=== PATIENT | male | born 1975 | race Caucasian/White ===

== ENCOUNTER 2016-09-24 16:38 | Inpatient (IN) | payer OTHER ==
[~2016-09-24] VITALS: Ht 175.3 cm; Wt 86.9 kg
--- NOTE | 2016-09-24 17:43 | PHYS DOC ---
Past Medical History Past Medical History: Other Additional Past Medical Histor: HEP C Past Surgical History: Other Additional Past Surgical Histo: RIGHT HAND Alcohol Use: None Drug Use: None Adult General Chief Complaint Chief Complaint: OTHER COMPLAINTS HPI HPI Patient is a 41 year old male who presents with numbness on the L side of his body. Patient reports since yesterday evening ~1900 he has been having numbness/ burning pain in his LUE, LLE, L flank. No clear inciting or mitigating factors. No prior similar episodes. He denies weakness, HANNON, changes in vision. He has not taken anything for pain prior to arrival. Review of Systems Review of Systems Constitutional: Denies fever or chills Eyes: Denies change in visual acuity or eye pain HENT: Denies nasal congestion or sore throat Respiratory: Denies cough or shortness of breath Cardiovascular: Denies chest pain GI: Denies abdominal pain, nausea, vomiting, bloody stools or diarrhea : Denies dysuria or hematuria Musculoskeletal: Denies back pain or joint pain Integument: Denies rash or skin lesions Neurologic: Numbness/paresthesia on L side of body. Denies headache, focal weakness Current Medications Current Medications Current Medications Medications (Trade) Dose Ordered Sig/Rupal Start Time Stop Time Status Last Admin Dose Admin Gabapentin (Neurontin) 300 mg 1X ONCE 09/24/16 17:45 09/24/16 17:46 DC 09/24/16 17:49 300 MG Allergies Allergies Allergies Coded Allergies Type Severity Reaction Last Updated Verified No Known Drug Allergies 09/24/16 No Physical Exam Physical Exam Constitutional: Well developed, well nourished, no acute distress, non-toxic appearance HENT: Normocephalic, atraumatic, bilateral external ears normal Eyes: PERRL, EOMI, conjunctiva normal, no discharge Neck: Normal range of motion, no stridor Cardiovascular: Heart rate normal, regular rhythm, no murmur Lungs & Thorax: Bilateral breath sounds clear to auscultation Abdomen: Bowel sounds normal, soft, non-distended, no TTP Skin: Warm, dry, no erythema, no rash Extremities: No obvious deformity, no edema Neurologic: Alert and oriented X 3, GCS 15, CN II-XII grossly intact, strength intact and symmetrical throughout except for mild weakness in L fence post cutter strength, sensation to light touch diminished in LUE/LLE, no dystaxia noted Current Patient Data Vital Signs Vital Signs Date Time Temp Pulse Resp B/P Pulse Ox O2 Delivery O2 Flow Rate FiO2 09/24/16 19:10 68 20 129/80 96 09/24/16 16:41 97.5 Room Air 97.5 Lab Values Laboratory Tests Test 09/24/16 17:45 09/24/16 18:40 White Blood Count 6.9x10^3/uL (4.0-11.0) Red Blood Count 4.88x10^6/uL (4.30-5.70) Hemoglobin 15.5g/dL (13.0-17.5) Hematocrit 46.0% (39.0-53.0) Mean Corpuscular Volume 94fL (79-100) Mean Corpuscular Hemoglobin 32pg (25-35) Mean Corpuscular Hemoglobin Concent 34g/dL (31-37) Red Cell Distribution Width 13.0% (11.5-14.5) Platelet Count 254x10^3/uL (140-400) Neutrophils (%) (Auto) 53% (31-73) Lymphocytes (%) (Auto) 31% (24-48) Monocytes (%) (Auto) 10% (0-9) H Eosinophils (%) (Auto) 5% (0-3) H Basophils (%) (Auto) 1% (0-3) Neutrophils # (Auto) 3.7x10^3uL (1.8-7.7) Lymphocytes # (Auto) 2.2x10^3/uL (1.0-4.8) Monocytes # (Auto) 0.7x10^3/uL (0.0-1.1) Eosinophils # (Auto) 0.3x10^3/uL (0.0-0.7) Basophils # (Auto) 0.1x10^3/uL (0.0-0.2) Sodium Level 143mmol/L (136-145) Potassium Level 3.9mmol/L (3.5-5.1) Chloride Level 106mmol/L (98-107) Carbon Dioxide Level 28mmol/L (21-32) Anion Gap 9 (6-14) Blood Urea Nitrogen 9mg/dL (8-26) Creatinine 1.0mg/dL (0.7-1.3) Estimated GFR (Cockcroft-Gault) 82.8 Glucose Level 90mg/dL (70-99) Calcium Level 8.9mg/dL (8.5-10.1) Magnesium Level 2.1mg/dL (1.8-2.4) Urine Opiates Screen Neg (NEG) Urine Methadone Screen Neg (NEG) Urine Barbiturates Neg (NEG) Urine Phencyclidine Screen Neg (NEG) Urine Amphetamine/Methamphetamine Pos (NEG) Urine Benzodiazepines Screen Neg (NEG) Urine Cocaine Screen Neg (NEG) Urine Cannabinoids Screen Neg (NEG) Urine Ethyl Alcohol Neg (NEG) Laboratory Tests 09/24/16 17:45 Laboratory Tests 09/24/16 17:45 EKG EKG EKG (my read): sinus rhythm, rate 61, normal axis, intervals wnl, no acute ST/T changes Radiology/Procedures Radiology/Procedures CXR (my read): No acute abnormality CT head: IMPRESSION No acute intracranial process. Please note that CT can be relatively insensitive to acute ischemic infarction for up to 24 hours after symptom onset. Course & Med Decision Making Course & Med Decision Making Pertinent Labs and Imaging studies reviewed. (See chart for details) Patient is 41-year-old male who presents with left-sided numbness. Also appears to have mild left fence post cutter weakness on my exam. Must consider stroke although I consider this unlikely. Will obtain CT head, chest x-ray, EKG, labs to evaluate. Gabapentin ordered for pain. Imaging and EKG results as above. Blood work unremarkable. Urine drug screen positive for amphetamines. Discussed results with patient. Discussed with Dr. Dhillon, will admit under his care for further evaluation and treatment. Dragon Disclaimer Dragon Disclaimer This electronic medical record was generated, in whole or in part, using a voice recognition dictation system. Departure Departure Impression: Primary Impression: Numbness of left lower extremity Additional Impression: Numbness and tingling in left upper extremity Disposition: 09 ADMITTED INPATIENT Admitting Physician: Damon Dhillon Condition: STABLE Referrals: NO PCP (PCP) Problem Qualifiers DEBBIE WEEKS MD Sep 24, 2016 17:42
[2016-09-24] MEDS ORDERED: GABAPENTIN 300 MG CAPSULE. PO ONE (17:45)
[2016-09-24 17:54] LABS: BASO # 0.1 x10^3/uL (0.0-0.2); BASO % 1 % (0-3); EOS % 5 % (0-3); HEMOGLOBIN 15.5 g/dL (13.0-17.5); LYMPH # 2.2 x10^3/uL (1.0-4.8); LYMPH % 31 % (24-48); MEAN CORPUSCULAR HEMOGLOBIN 32 pg (25-35); MEAN CORPUSCULAR HGB CONC 34 g/dL (31-37); MEAN CORPUSCULAR VOLUME 94 fL (79-100); MONO % 10 % (0-9); NEUT % 53 % (31-73); PLATELET COUNT 254 x10^3/uL (140-400); RED BLOOD COUNT 4.88 x10^6/uL (4.30-5.70); WHITE BLOOD COUNT 6.9 x10^3/uL (4.0-11.0)
[2016-09-24 18:07] LABS: CALCIUM 8.9 mg/dL (8.5-10.1); GFR 82.8; POTASSIUM 3.9 mmol/L (3.5-5.1)
[2016-09-24 18:08] LABS: MAGNESIUM 2.1 mg/dL (1.8-2.4)
--- NOTE | 2016-09-24 18:33 | RAD ---
PROCEDURE CT head without intravenous contrast. HISTORY Left-sided numbness since 1900 hours. TECHNIQUE Axial images are obtained of the head from the skull base through the vertex without IV contrast Exposure: One or more of the following individualized dose reduction techniques were utilized for this examination: 1. Automated exposure control. 2. Adjustment of the mA and/or kV according to patient size. 3. Use of iterative reconstruction technique. COMPARISON None. FINDINGS The ventricles are appropriate in size, shape, and location for the patient's age.No obvious intracranial mass, mass-effect, midline shift, hemorrhage or obvious acute infarction is identified.Basilar cisterns are patent. Bone windows demonstrate no acute calvarial abnormality.The visualized paranasal sinuses appear clear. IMPRESSION No acute intracranial process. Please note that CT can be relatively insensitive to acute ischemic infarction for up to 24 hours after symptom onset. Electronically signed by: Heladio Soto MD (Sep 24, 2016 18:31:19)
[2016-09-24 18:56] LABS: BARBITURATES NEG (NEG); BENZODIAZEPINES NEG (NEG); CANNABINOIDS NEG (NEG); COCAINE NEG (NEG); METHADONE NEG (NEG); OPIATES NEG (NEG); PHENCYCLIDINE NEG (NEG)
[2016-09-24 19:01] LABS: ETHANOL, URINE NEG (NEG)
[2016-09-24] MEDS ORDERED: HYDROCODONE/APAP 5/325MG TABLET. PO ONE (19:30)
[2016-09-24] MEDS ORDERED: ACETAMINOPHEN 325 MG TABLET. PO PRN (19:30)
[2016-09-24] MEDS: MORPHINE SULFATE 2 MG/ML DISP.SYRIN. IV PRN (22:08)
[2016-09-24 22:25] VITALS: BP 144/81
--- NOTE | 2016-09-24 22:53 | ACF ---
Admission Forms Criteria TELEMETRY CARE Telemetry Admission Guidelines (Place 'X' for any and all applicable criteria): Admission to telemetry [A] may be indicated for ANY ONE of the following(1)(2)(3 )(4)(5): [ ]I. Cardiac disease, including ANY ONE of the following (9)(10)(11)(12)(13 ): [ ]a) Postacute DE [ ]b) Low-risk patients with ST-segment elevation DE who have undergone successful percutaneous coronary intervention [ ]c) Unstable angina [ ]d) Suspected DE (until it is ruled out) [ ]e) Post cardiac surgery (first 48 to 72 hours unless complications occur) [ ]f) Acute arrhythmias (including significant tachycardia or bradycardia) [B] [ ]g) Firing of an implantable cardioverter defibrillator [C] [ ]h) Suspected pacemaker or implantable cardioverter defibrillator malfunction (10) [ ]i) New administration or adjustment of an antiarrhythmic drug [D ] [ ]j) Child admitted for acute congestive heart failure [ ]j) Long QT syndrome [ ]k) Advanced heart block (eg, second-degree Mobitz type II, third- degree heart block) [ ]l) Acute myocarditis or pericarditis [ ]m) Short-term (ambulatory or inpatient) monitoring after a cardiac procedure as indicated by ANY ONE of the following [E]: [ ]i) Electrophysiologic studies [ ]ii) Percutaneous coronary intervention with stent placement [ ]iii) Pacemaker placement with cardiac conduction defect [ ]iv) Implantable cardiac defibrillator placement [X]II. Drug overdose or poisoning with substance that causes arrhythmias or QT prolongation (eg, phenothiazines, sympathomimetic agents, cyclic antidepressants, digitalis, antiarrhythmic drugs)(15) [ ]III. Short-term (ambulatory or inpatient) monitoring after therapeutic or diagnostic procedure requiring conscious sedation or anesthesia (eg, endoscopy, elective cardioversion) [ ]IV. Acute cerebrovascular even[F](18) [ ]V. Massive blood transfusion (eg, at least 10 units of packed red blood cells in 24 hours) [ ]. Variceal bleeding after endoscopy, sclerotherapy, or IV vasopressin [ ]VII. Uncorrected electrolyte abnormalities associated with an increased risk of dangerous arrhythmia [G]; examples include [ ]a) Hyperkalemia with attributable ECG changes [ ]b) Potassium greater than 6.5 mmol/L (mEq/L) in a patient without history of chronic renal disease [ ]c) Prolonged QT attributed to hypokalemia, hypomagnesemia, or hypocalcemia [ ]VIII.Unexplained syncope or other neurologic event suspected of being due to arrhythmia due to a finding that increases risk; examples include(19)(20)(21): [ ]a) High-risk ECG findings (eg, bifascicular block, bradycardia, abnormal QT interval, ventricular pre- excitation) [ ]b) History of previous syncope due to arrhythmia [ ]c) Abnormal ventricular function (eg, reduced ejection fraction ) [ ]d) Exertional or supine syncope [ ]e) Concerning syncope characteristics (eg, sudden loss of consciousness without prodrome) [ ]f) Family history of sudden [ ]g) Use of arrhythmogenic medication [ ]h) Suspected cardiac ischemia [ ]i) Known channelopathy (eg, long QT syndrome, Brugada syndrome, or catecholaminergic paroxysmal ventricular tachycardia) [ ]j) Known structural heart disease (eg, hypertrophic cardiomyopathy , severe valvular disease) [ ]k) Palpitations preceding syncope The original [employer] content created by [employer] has been revised. The portions of the content which have been revised are identified through the use of italic text or in bold, and [email or web address] has neither reviewed nor approved the modified material. All other unmodified content is copyright [employer]. Please see references footnoted in the original [employer] edition 2016 Admission Criteria Met?: Yes LAISHA BOWEN Sep 24, 2016 22:53
[2016-09-24] MEDS ORDERED: INFLUENZA VAX SCREEN BY RX. MC ONE (23:15)
[2016-09-25] MEDS: MORPHINE SULFATE 2 MG/ML DISP.SYRIN. IV PRN ×4 (00:12→13:30)
--- NOTE | 2016-09-25 00:12 | HP ---
ADMIT DATE: 09/24/2016 CHIEF COMPLAINT: Numbness on the left side. HISTORY OF PRESENT ILLNESS: The patient is a pleasant 41-year-old white male who resides at [facility] for the past 15 years. Basically, he presented today with left-sided weakness and some numbness started at 7 this evening, rated as 7/10. Initial imaging studies are not confirming anything, but we were concerned he could be having a stroke or TIA. I discussed the case with the ER physician. We are going to admit the patient and consult Neurology. PAST MEDICAL HISTORY: Hepatitis C and multiple tattoos. ALLERGIES: None. FAMILY HISTORY: Coronary artery disease. SOCIAL HISTORY: He used to do drugs. He used to smoke, used to drink, but currently he does not. He has been in [facility] for 15 years. He states he gets out in 5 years. MEDICATIONS: Reviewed, please refer to the MRAD. REVIEW OF SYSTEMS: GENERAL: No history of weight change, weakness or fevers. SKIN: No bruising, hair changes or rashes. EYES: No blurred, double or loss of vision. NOSE AND THROAT: No history of nosebleeds, hoarseness or sore throat. HEART: No history of palpitations, chest pain or shortness of breath on exertion. LUNGS: Denies cough, hemoptysis, wheezing or shortness of breath. GASTROINTESTINAL: Denies changes in appetite, nausea, vomiting, diarrhea or constipation. GENITOURINARY: No history of frequency, urgency, hesitancy or nocturia. NEUROLOGIC: He complains of left-sided weakness, although it is improving. PSYCHIATRIC: No history of panic, anxiety or depression. ENDOCRINE: No history of heat or cold intolerance, polyuria or polydipsia. EXTREMITIES: Denies muscle weakness, joint pain, pain on walking or stiffness. PHYSICAL EXAMINATION: VITAL SIGNS: Temperature afebrile, pulse 63, respirations 18, blood pressure 144/81, O2 sat 100%. GENERAL: He is alert, cooperative. He is shackled. Two officers are present. HEART: Distant S1, S2. LUNGS: Clear. ABDOMEN: Soft, positive bowel sounds. EXTREMITIES: No edema. SKIN: He has nearly complete coverage of his skin with tattoos. ENDOCRINE: No thyromegaly. LYMPHATICS: No cervical nodes. HEMATOPOIETIC: No bruising. 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 LABORATORY DATA: CT of the head is negative. Hematology: Negative. Electrolytes normal. Drug screen positive for amphetamines. ASSESSMENT AND PLAN: TIA symptoms versus stroke with incidental finding of a positive drug screen for amphetamines in a middle-aged male who resides in a correctional facility. The patient has been admitted, will consult Dr. Chandler. PT, OT evaluate and treat, daily aspirin. Continue home medicines, although according to records ____ at the hospital, I am not sure why he is positive for amphetamines. Cardiac monitoring. Repeat his labs in the morning. SAÚL REGAN DO DR: STEFFANIE/nathalie JOB#: [id number] / [id number]
[2016-09-25 03:00] VITALS: BP 121/78
[2016-09-25] MEDS: ONDANSETRON PF 4 MG/2 ML VIAL. IV PRN ×2 (05:25→13:29)
[2016-09-25 06:43] LABS: CALCIUM 8.8 mg/dL (8.5-10.1); CREATININE 0.8 mg/dL (0.7-1.3); GFR 107.1; POTASSIUM 4.1 mmol/L (3.5-5.1)
--- NOTE | 2016-09-25 06:50 | EKG ---
[facility] [address] [place] [address] Test Date: 2016-09-24 Test Time: 18:00:58 Pat Name: ERNIE LIMON Department: Room: [facility] Gender: M Blow Down Operator: : 1975 Requested By: DEBBIE WEEKS Order Number: [id number] Reading MD: Ksenia Dickerson Measurements Intervals [place] Rate: 61 P: 32 PA: 166 QRS: 31 QRSD: 86 T: 12 QT: 434 QTc: 443 Interpretive Statements SINUS RHYTHM NO SPECIFIC ECG ABNORMALITIES RI6.01 No previous ECG available for comparison Electronically Signed On 09-26-2016 20:07:55 CDT by Ksenia Dickerson
[2016-09-25 06:51] LABS: BASO # 0.1 x10^3/uL (0.0-0.2); BASO % 1 % (0-3); EOS % 7 % (0-3); HEMATOCRIT 42.6 % (39.0-53.0); HEMOGLOBIN 14.1 g/dL (13.0-17.5); LYMPH % 45 % (24-48); MEAN CORPUSCULAR HEMOGLOBIN 31 pg (25-35); MEAN CORPUSCULAR HGB CONC 33 g/dL (31-37); MEAN CORPUSCULAR VOLUME 95 fL (79-100); MONO % 10 % (0-9); NEUT % 37 % (31-73); PLATELET COUNT 241 x10^3/uL (140-400); RED BLOOD COUNT 4.51 x10^6/uL (4.30-5.70); RED CELL DISTRIBUTION WIDTH 13.1 % (11.5-14.5); WHITE BLOOD COUNT 6.6 x10^3/uL (4.0-11.0)
[2016-09-25 07:00] VITALS: BP 108/69
--- NOTE | 2016-09-25 07:47 | RAD ---
Portable chest, 09/24/2016: History: Left-sided numbness The heart size and pulmonary vascularity are normal. A calcified granuloma is present in the right base. No acute infiltrates are seen. There is no evidence of pleural fluid. IMPRESSION: No acute cardiopulmonary abnormality is detected.
[2016-09-25] MEDS ORDERED: FLU VACC QUAD 2016-17 (36MOS+)/PF 0.5 ML SYRINGE. VAX IM ONE (09:00)
--- NOTE | 2016-09-25 10:05 | PDOC2 ---
NEUROLOGY CONSULT Date of Admission Date of Admission DATE: 09/25/16 TIME: 10:01 Reason for Consult Reason for Consult: Left-sided numbness Referring Physician Referring Physician: Dr. Dhillon Source Source: Chart review, Patient History of Present Illness History of Present Illness The patient is a 41-year-old right-handed male inmate at [facility] who tonight to go to notice the onset of severe numbness, pain, and burning on the entire left side of his body. There is no history of stroke, seizure, or head injury. He says the symptoms persist. Past Medical History Hepatobiliary: Hep A/B/C (C) Past Surgical History Past Surgical History: Other (hand) Family History Family History: Cancer Social History Social History Inmate Current Medications Current Medications Current Medications Gabapentin (Neurontin) 300 mg 1X ONCE PO Last administered on 09/24/16 17:49 ; Start 09/24/16 at 17:45; Stop 09/24/16 at 17:46; Status DC Ondansetron HCl (Zofran) 4 mg PRN Q8HRS PRN IV NAUSEA/VOMITING Last administered on 09/25/16 05:25; Start 09/24/16 at 19:30; Stop 09/25/16 at 19:29 Morphine Sulfate 2 mg PRN Q2HR PRN IV PAIN Last administered on 09/25/16 09:03 ; Start 09/24/16 at 19:30; Stop 09/25/16 at 19:29 Acetaminophen (Tylenol) 650 mg PRN Q4HRS PRN PO FEVER Last administered on 09/24 23:08; Start 09/24/16 at 19:30; Stop 09/25/16 at 19:29 Acetaminophen/ Hydrocodone Bitart (Lortab 5/325) 1 tab 1X ONCE PO Last administered on 09/24/16 19:30; Start 09/24/16 at 19:30; Stop 09/24/16 at 19:31 ; Status DC Info (Do NOT chart on this placeholder) 1 each 1X ONCE MC ; Start 09/24/16 at 23:15; Stop 09/24/16 at 23:16; Status UNV Influenza Virus Vaccine Quadrival (Fluarix Quad [id number] Syringe) 0.5 ml ONCE ONCE VAX IM ; Start 09/25/16 at 09:00; Stop 09/25/16 at 09:01; Status DC Active Scripts Active No Active Prescriptions or Reported Medications Allergies Allergies: Coded Allergies: No Known Drug Allergies (Unverified , 09/24/16) ROS Review of System Negative for fevers, chills, weight loss, shortness of breath, chest pain, indigestion, hematochezia, melena, dysuria. Full 14-point review systems is negative. Physical Exam Physical Examination PHYSICAL EXAMINATION: Vital signs: see above. General appearance is normal and in no acute distress. HEENT: Normocephalic and nontraumatic. Eyes, nose, ears, and throat are unremarkable. Neck is supple. No lymphadenopathy. No bruits are heard over the carotid artery. No crepitus. NEUROLOGICAL EXAMINATION: Mental Status Examination: Alert. Oriented to time, place, and person. Answers questions and follows commends. Pupils are equal round and reactive to light and accommodation. Funduscopic exam: No papilledema. Extraocular movements are intact. Visual field exam shows no defect on the direct confrontation. No motor or sensory deficits on the facial exam. Uvula in the midline and the soft palate elevated symmetrically. No deviation of the tongue to any direction. Gross hearing is normal. Shoulder shrug normal. Muscle tone is normal. Muscle strength is 5. Deep tendon reflexes are 2+ all around. Plantar reflex is with flexion response bilaterally. [id number] test performance is accurate. Alternative movements are accurate. Gait not tested. Sensory exam: He claims complete anesthesia on the entire left side of the body, splitting the midline. No cerebellar signs are elicited. Vitals VITALS Vital Signs Date Time Temp Pulse Resp B/P Pulse Ox O2 Delivery O2 Flow Rate FiO2 09/25/16 09:03 98 Room Air 09/25/16 07:00 97.9 63 18 108/69 97.9 Labs Labs Laboratory Tests Test 09/24/16 17:45 09/24/16 18:40 09/25/16 05:50 White Blood Count 6.9x10^3/uL (4.0-11.0) 6.6x10^3/uL (4.0-11.0) Red Blood Count 4.88x10^6/uL (4.30-5.70) 4.51x10^6/uL (4.30-5.70) Hemoglobin 15.5g/dL (13.0-17.5) 14.1g/dL (13.0-17.5) Hematocrit 46.0% (39.0-53.0) 42.6% (39.0-53.0) Mean Corpuscular Volume 94fL (79-100) 95fL (79-100) Mean Corpuscular Hemoglobin 32pg (25-35) 31pg (25-35) Mean Corpuscular Hemoglobin Concent 34g/dL (31-37) 33g/dL (31-37) Red Cell Distribution Width 13.0% (11.5-14.5) 13.1% (11.5-14.5) Platelet Count 254x10^3/uL (140-400) 241x10^3/uL (140-400) Neutrophils (%) (Auto) 53% (31-73) 37% (31-73) Lymphocytes (%) (Auto) 31% (24-48) 45% (24-48) Monocytes (%) (Auto) 10% (0-9) 10% (0-9) Eosinophils (%) (Auto) 5% (0-3) 7% (0-3) Basophils (%) (Auto) 1% (0-3) 1% (0-3) Neutrophils # (Auto) 3.7x10^3uL (1.8-7.7) 2.4x10^3uL (1.8-7.7) Lymphocytes # (Auto) 2.2x10^3/uL (1.0-4.8) 3.0x10^3/uL (1.0-4.8) Monocytes # (Auto) 0.7x10^3/uL (0.0-1.1) 0.7x10^3/uL (0.0-1.1) Eosinophils # (Auto) 0.3x10^3/uL (0.0-0.7) 0.5x10^3/uL (0.0-0.7) Basophils # (Auto) 0.1x10^3/uL (0.0-0.2) 0.1x10^3/uL (0.0-0.2) Sodium Level 143mmol/L (136-145) 142mmol/L (136-145) Potassium Level 3.9mmol/L (3.5-5.1) 4.1mmol/L (3.5-5.1) Chloride Level 106mmol/L (98-107) 105mmol/L (98-107) Carbon Dioxide Level 28mmol/L (21-32) 30mmol/L (21-32) Anion Gap 9 (6-14) 7 (6-14) Blood Urea Nitrogen 9mg/dL (8-26) 12mg/dL (8-26) Creatinine 1.0mg/dL (0.7-1.3) 0.8mg/dL (0.7-1.3) Estimated GFR (Cockcroft-Gault) 82.8 107.1 Glucose Level 90mg/dL (70-99) 126mg/dL (70-99) Calcium Level 8.9mg/dL (8.5-10.1) 8.8mg/dL (8.5-10.1) Magnesium Level 2.1mg/dL (1.8-2.4) Urine Opiates Screen Neg (NEG) Urine Methadone Screen Neg (NEG) Urine Barbiturates Neg (NEG) Urine Phencyclidine Screen Neg (NEG) Urine Amphetamine/Methamphetamine Pos (NEG) Urine Benzodiazepines Screen Neg (NEG) Urine Cocaine Screen Neg (NEG) Urine Cannabinoids Screen Neg (NEG) Urine Ethyl Alcohol Neg (NEG) Laboratory Tests Test 09/24/16 17:45 09/24/16 18:40 09/25/16 05:50 White Blood Count 6.9x10^3/uL (4.0-11.0) 6.6x10^3/uL (4.0-11.0) Red Blood Count 4.88x10^6/uL (4.30-5.70) 4.51x10^6/uL (4.30-5.70) Hemoglobin 15.5g/dL (13.0-17.5) 14.1g/dL (13.0-17.5) Hematocrit 46.0% (39.0-53.0) 42.6% (39.0-53.0) Mean Corpuscular Volume 94fL (79-100) 95fL (79-100) Mean Corpuscular Hemoglobin 32pg (25-35) 31pg (25-35) Mean Corpuscular Hemoglobin Concent 34g/dL (31-37) 33g/dL (31-37) Red Cell Distribution Width 13.0% (11.5-14.5) 13.1% (11.5-14.5) Platelet Count 254x10^3/uL (140-400) 241x10^3/uL (140-400) Neutrophils (%) (Auto) 53% (31-73) 37% (31-73) Lymphocytes (%) (Auto) 31% (24-48) 45% (24-48) Monocytes (%) (Auto) 10% (0-9) 10% (0-9) Eosinophils (%) (Auto) 5% (0-3) 7% (0-3) Basophils (%) (Auto) 1% (0-3) 1% (0-3) Neutrophils # (Auto) 3.7x10^3uL (1.8-7.7) 2.4x10^3uL (1.8-7.7) Lymphocytes # (Auto) 2.2x10^3/uL (1.0-4.8) 3.0x10^3/uL (1.0-4.8) Monocytes # (Auto) 0.7x10^3/uL (0.0-1.1) 0.7x10^3/uL (0.0-1.1) Eosinophils # (Auto) 0.3x10^3/uL (0.0-0.7) 0.5x10^3/uL (0.0-0.7) Basophils # (Auto) 0.1x10^3/uL (0.0-0.2) 0.1x10^3/uL (0.0-0.2) Sodium Level 143mmol/L (136-145) 142mmol/L (136-145) Potassium Level 3.9mmol/L (3.5-5.1) 4.1mmol/L (3.5-5.1) Chloride Level 106mmol/L (98-107) 105mmol/L (98-107) Carbon Dioxide Level 28mmol/L (21-32) 30mmol/L (21-32) Anion Gap 9 (6-14) 7 (6-14) Blood Urea Nitrogen 9mg/dL (8-26) 12mg/dL (8-26) Creatinine 1.0mg/dL (0.7-1.3) 0.8mg/dL (0.7-1.3) Estimated GFR (Cockcroft-Gault) 82.8 107.1 Glucose Level 90mg/dL (70-99) 126mg/dL (70-99) Calcium Level 8.9mg/dL (8.5-10.1) 8.8mg/dL (8.5-10.1) Magnesium Level 2.1mg/dL (1.8-2.4) Urine Opiates Screen Neg (NEG) Urine Methadone Screen Neg (NEG) Urine Barbiturates Neg (NEG) Urine Phencyclidine Screen Neg (NEG) Urine Amphetamine/Methamphetamine Pos (NEG) Urine Benzodiazepines Screen Neg (NEG) Urine Cocaine Screen Neg (NEG) Urine Cannabinoids Screen Neg (NEG) Urine Ethyl Alcohol Neg (NEG) Images Images CT head negative Assessment/Plan Assessment/Plan Impression: High suspicion for factitious disorder as he has complete anesthesia, splitting the midline. Positive urine drug screen for methamphetamine Recommendations: MRI brain If this is negative, discharge back to [facility] with extreme prejudice Thank you for letting me help with the patient's care. ERNIE PALUMBO MD Sep 25, 2016 10:05
[2016-09-25 11:00] VITALS: BP 112/57
[2016-09-25] MEDS ORDERED: HYDROCODONE/APAP 5/325MG TABLET. PO PRN (11:39)
--- NOTE | 2016-09-25 12:27 | PDOC ---
PROGRESS NOTES Chief Complaint Chief Complaint cc: left upper extremity numbness A/P Left upper extremity tingling, numbness, and weakness k2 Use Plan exam appears normal, ? related substance use MRI pending. Vitals Vitals Vital Signs Date Time Temp Pulse Resp B/P Pulse Ox O2 Delivery O2 Flow Rate FiO2 09/25/16 12:03 Room Air 09/25/16 11:00 98.3 56 18 112/57 100 98.3 Physical Exam General: Alert, Oriented X3 Heart: Normal S1, Normal S2 Lungs: Clear, Wheezing Abdomen: Normal bowel sounds Extremities: No clubbing, No cyanosis, Other (no weakness noted, no sensoray changes. ) Labs LABS Laboratory Tests Test 09/24/16 17:45 09/24/16 18:40 09/25/16 05:50 White Blood Count 6.9x10^3/uL (4.0-11.0) 6.6x10^3/uL (4.0-11.0) Red Blood Count 4.88x10^6/uL (4.30-5.70) 4.51x10^6/uL (4.30-5.70) Hemoglobin 15.5g/dL (13.0-17.5) 14.1g/dL (13.0-17.5) Hematocrit 46.0% (39.0-53.0) 42.6% (39.0-53.0) Mean Corpuscular Volume 94fL (79-100) 95fL (79-100) Mean Corpuscular Hemoglobin 32pg (25-35) 31pg (25-35) Mean Corpuscular Hemoglobin Concent 34g/dL (31-37) 33g/dL (31-37) Red Cell Distribution Width 13.0% (11.5-14.5) 13.1% (11.5-14.5) Platelet Count 254x10^3/uL (140-400) 241x10^3/uL (140-400) Neutrophils (%) (Auto) 53% (31-73) 37% (31-73) Lymphocytes (%) (Auto) 31% (24-48) 45% (24-48) Monocytes (%) (Auto) 10% (0-9) 10% (0-9) Eosinophils (%) (Auto) 5% (0-3) 7% (0-3) Basophils (%) (Auto) 1% (0-3) 1% (0-3) Neutrophils # (Auto) 3.7x10^3uL (1.8-7.7) 2.4x10^3uL (1.8-7.7) Lymphocytes # (Auto) 2.2x10^3/uL (1.0-4.8) 3.0x10^3/uL (1.0-4.8) Monocytes # (Auto) 0.7x10^3/uL (0.0-1.1) 0.7x10^3/uL (0.0-1.1) Eosinophils # (Auto) 0.3x10^3/uL (0.0-0.7) 0.5x10^3/uL (0.0-0.7) Basophils # (Auto) 0.1x10^3/uL (0.0-0.2) 0.1x10^3/uL (0.0-0.2) Sodium Level 143mmol/L (136-145) 142mmol/L (136-145) Potassium Level 3.9mmol/L (3.5-5.1) 4.1mmol/L (3.5-5.1) Chloride Level 106mmol/L (98-107) 105mmol/L (98-107) Carbon Dioxide Level 28mmol/L (21-32) 30mmol/L (21-32) Anion Gap 9 (6-14) 7 (6-14) Blood Urea Nitrogen 9mg/dL (8-26) 12mg/dL (8-26) Creatinine 1.0mg/dL (0.7-1.3) 0.8mg/dL (0.7-1.3) Estimated GFR (Cockcroft-Gault) 82.8 107.1 Glucose Level 90mg/dL (70-99) 126mg/dL (70-99) Calcium Level 8.9mg/dL (8.5-10.1) 8.8mg/dL (8.5-10.1) Magnesium Level 2.1mg/dL (1.8-2.4) Urine Opiates Screen Neg (NEG) Urine Methadone Screen Neg (NEG) Urine Barbiturates Neg (NEG) Urine Phencyclidine Screen Neg (NEG) Urine Amphetamine/Methamphetamine Pos (NEG) Urine Benzodiazepines Screen Neg (NEG) Urine Cocaine Screen Neg (NEG) Urine Cannabinoids Screen Neg (NEG) Urine Ethyl Alcohol Neg (NEG) Assessment and Plan Assessmemt and Plan Problems Medical Problems: (1) Numbness Status: Acute (2) Numbness and tingling in left upper extremity Status: Acute (3) Numbness of left lower extremity Status: Acute Problems: Comment Review of Relevant I have reviewed the following items yaniv (where applicable) has been applied. Labs Laboratory Tests Test 09/24/16 17:45 09/24/16 18:40 09/25/16 05:50 White Blood Count 6.9x10^3/uL (4.0-11.0) 6.6x10^3/uL (4.0-11.0) Red Blood Count 4.88x10^6/uL (4.30-5.70) 4.51x10^6/uL (4.30-5.70) Hemoglobin 15.5g/dL (13.0-17.5) 14.1g/dL (13.0-17.5) Hematocrit 46.0% (39.0-53.0) 42.6% (39.0-53.0) Mean Corpuscular Volume 94fL (79-100) 95fL (79-100) Mean Corpuscular Hemoglobin 32pg (25-35) 31pg (25-35) Mean Corpuscular Hemoglobin Concent 34g/dL (31-37) 33g/dL (31-37) Red Cell Distribution Width 13.0% (11.5-14.5) 13.1% (11.5-14.5) Platelet Count 254x10^3/uL (140-400) 241x10^3/uL (140-400) Neutrophils (%) (Auto) 53% (31-73) 37% (31-73) Lymphocytes (%) (Auto) 31% (24-48) 45% (24-48) Monocytes (%) (Auto) 10% (0-9) 10% (0-9) Eosinophils (%) (Auto) 5% (0-3) 7% (0-3) Basophils (%) (Auto) 1% (0-3) 1% (0-3) Neutrophils # (Auto) 3.7x10^3uL (1.8-7.7) 2.4x10^3uL (1.8-7.7) Lymphocytes # (Auto) 2.2x10^3/uL (1.0-4.8) 3.0x10^3/uL (1.0-4.8) Monocytes # (Auto) 0.7x10^3/uL (0.0-1.1) 0.7x10^3/uL (0.0-1.1) Eosinophils # (Auto) 0.3x10^3/uL (0.0-0.7) 0.5x10^3/uL (0.0-0.7) Basophils # (Auto) 0.1x10^3/uL (0.0-0.2) 0.1x10^3/uL (0.0-0.2) Sodium Level 143mmol/L (136-145) 142mmol/L (136-145) Potassium Level 3.9mmol/L (3.5-5.1) 4.1mmol/L (3.5-5.1) Chloride Level 106mmol/L (98-107) 105mmol/L (98-107) Carbon Dioxide Level 28mmol/L (21-32) 30mmol/L (21-32) Anion Gap 9 (6-14) 7 (6-14) Blood Urea Nitrogen 9mg/dL (8-26) 12mg/dL (8-26) Creatinine 1.0mg/dL (0.7-1.3) 0.8mg/dL (0.7-1.3) Estimated GFR (Cockcroft-Gault) 82.8 107.1 Glucose Level 90mg/dL (70-99) 126mg/dL (70-99) Calcium Level 8.9mg/dL (8.5-10.1) 8.8mg/dL (8.5-10.1) Magnesium Level 2.1mg/dL (1.8-2.4) Urine Opiates Screen Neg (NEG) Urine Methadone Screen Neg (NEG) Urine Barbiturates Neg (NEG) Urine Phencyclidine Screen Neg (NEG) Urine Amphetamine/Methamphetamine Pos (NEG) Urine Benzodiazepines Screen Neg (NEG) Urine Cocaine Screen Neg (NEG) Urine Cannabinoids Screen Neg (NEG) Urine Ethyl Alcohol Neg (NEG) Laboratory Tests Test 09/24/16 17:45 09/24/16 18:40 09/25/16 05:50 White Blood Count 6.9x10^3/uL (4.0-11.0) 6.6x10^3/uL (4.0-11.0) Red Blood Count 4.88x10^6/uL (4.30-5.70) 4.51x10^6/uL (4.30-5.70) Hemoglobin 15.5g/dL (13.0-17.5) 14.1g/dL (13.0-17.5) Hematocrit 46.0% (39.0-53.0) 42.6% (39.0-53.0) Mean Corpuscular Volume 94fL (79-100) 95fL (79-100) Mean Corpuscular Hemoglobin 32pg (25-35) 31pg (25-35) Mean Corpuscular Hemoglobin Concent 34g/dL (31-37) 33g/dL (31-37) Red Cell Distribution Width 13.0% (11.5-14.5) 13.1% (11.5-14.5) Platelet Count 254x10^3/uL (140-400) 241x10^3/uL (140-400) Neutrophils (%) (Auto) 53% (31-73) 37% (31-73) Lymphocytes (%) (Auto) 31% (24-48) 45% (24-48) Monocytes (%) (Auto) 10% (0-9) 10% (0-9) Eosinophils (%) (Auto) 5% (0-3) 7% (0-3) Basophils (%) (Auto) 1% (0-3) 1% (0-3) Neutrophils # (Auto) 3.7x10^3uL (1.8-7.7) 2.4x10^3uL (1.8-7.7) Lymphocytes # (Auto) 2.2x10^3/uL (1.0-4.8) 3.0x10^3/uL (1.0-4.8) Monocytes # (Auto) 0.7x10^3/uL (0.0-1.1) 0.7x10^3/uL (0.0-1.1) Eosinophils # (Auto) 0.3x10^3/uL (0.0-0.7) 0.5x10^3/uL (0.0-0.7) Basophils # (Auto) 0.1x10^3/uL (0.0-0.2) 0.1x10^3/uL (0.0-0.2) Sodium Level 143mmol/L (136-145) 142mmol/L (136-145) Potassium Level 3.9mmol/L (3.5-5.1) 4.1mmol/L (3.5-5.1) Chloride Level 106mmol/L (98-107) 105mmol/L (98-107) Carbon Dioxide Level 28mmol/L (21-32) 30mmol/L (21-32) Anion Gap 9 (6-14) 7 (6-14) Blood Urea Nitrogen 9mg/dL (8-26) 12mg/dL (8-26) Creatinine 1.0mg/dL (0.7-1.3) 0.8mg/dL (0.7-1.3) Estimated GFR (Cockcroft-Gault) 82.8 107.1 Glucose Level 90mg/dL (70-99) 126mg/dL (70-99) Calcium Level 8.9mg/dL (8.5-10.1) 8.8mg/dL (8.5-10.1) Magnesium Level 2.1mg/dL (1.8-2.4) Urine Opiates Screen Neg (NEG) Urine Methadone Screen Neg (NEG) Urine Barbiturates Neg (NEG) Urine Phencyclidine Screen Neg (NEG) Urine Amphetamine/Methamphetamine Pos (NEG) Urine Benzodiazepines Screen Neg (NEG) Urine Cocaine Screen Neg (NEG) Urine Cannabinoids Screen Neg (NEG) Urine Ethyl Alcohol Neg (NEG) Medications Current Medications Gabapentin (Neurontin) 300 mg 1X ONCE PO Last administered on 09/24/16t 17:49 ; Start 09/24/16 at 17:45; Stop 09/24/16 at 17:46; Status DC Ondansetron HCl (Zofran) 4 mg PRN Q8HRS PRN IV NAUSEA/VOMITING Last administered on 09/25/16 05:25; Start 09/24/16 at 19:30; Stop 09/25/16 at 19:29 Morphine Sulfate 2 mg PRN Q2HR PRN IV PAIN Last administered on 09/25/16 09:03 ; Start 09/24/16 at 19:30; Stop 09/25/16 at 19:29 Acetaminophen (Tylenol) 650 mg PRN Q4HRS PRN PO FEVER Last administered on 09/24 23:08; Start 09/24/16 at 19:30; Stop 09/25/16 at 19:29 Acetaminophen/ Hydrocodone Bitart (Lortab 5/325) 1 tab 1X ONCE PO Last administered on 09/24/16 19:30; Start 09/24/16 at 19:30; Stop 09/24/16 at 19:31 ; Status DC Info (Do NOT chart on this placeholder) 1 each 1X ONCE MC ; Start 09/24/16 at 23:15; Stop 09/24/16 at 23:16; Status UNV Influenza Virus Vaccine Quadrival (Fluarix Quad [id number] Syringe) 0.5 ml ONCE ONCE VAX IM ; Start 09/25/16 at 09:00; Stop 09/25/16 at 09:01; Status DC Gabapentin (Neurontin) 100 mg TID PO Last administered on 09/25/16 12:03; Start 09/25/16 at 12:30 Acetaminophen/ Hydrocodone Bitart (Lortab 5/325) 1 tab PRN Q4HRS PRN PO PAIN Last administered on 09/25/16 12:03; Start 09/25/16 at 11:39 Active Scripts Active No Active Prescriptions or Reported Medications Vitals/I & O Vital Sign - Last 24 Hours 09/24/16 09/24/16 09/24/16 09/24/16 16:41 17:20 17:50 18:50 Temp 97.5 97.5 Pulse 66 60 64 75 Resp 18 18 18 18 B/P 119/77 122/79 139/82 127/82 Pulse Ox 99 95 95 95 O2 Delivery Room Air 09/24/16 09/24/16 09/24/16 09/24/16 19:10 19:50 20:20 20:50 Pulse 68 76 68 Resp 20 20 18 18 B/P 129/80 130/70 132/68 136/72 Pulse Ox 96 96 95 96 09/24/16 09/24/16 09/24/16 09/25/16 22:25 22:25 22:38 03:00 Temp 97.5 97.5 97.5 97.5 97.5 97.5 Pulse 63 63 64 Resp 18 18 19 B/P 144/81 144/81 121/78 Pulse Ox 100 100 98 O2 Delivery Room Air Room Air Room Air Room Air 09/25/16 09/25/16 09/25/16 09/25/16 07:00 09:03 11:00 12:03 Temp 97.9 98.3 97.9 98.3 Pulse 63 56 Resp 18 18 B/P 108/69 112/57 Pulse Ox 98 98 100 O2 Delivery Room Air Room Air Room Air Room Air Intake and Output 09/24/16 09/24/16 09/25/16 15:00 23:00 07:00 Intake Total 2800 ml Balance 2800 ml TASNEEM MCKINNEY MD Sep 25, 2016 12:27
[2016-09-25] MEDS ORDERED: GABAPENTIN 100 MG CAPSULE. PO SCH (12:30)
[2016-09-25] MEDS ORDERED: GADOBUTROL 7.5 MMOL/7.5 ML VIAL IV ONE (14:00)
--- NOTE | 2016-09-25 14:15 | RAD ---
PROCEDURE MRI brain without and with contrast. HISTORY Left-sided weakness TECHNIQUE Multiplanar, multi sequential, pre and post contrast MR imaging was performed of the brain. Contrast: 7.5 cc Gadavist COMPARISON None available FINDINGS There is no restricted diffusion suggestive of a recent infarct or cytotoxic edema. The entirety of the inferior cerebellar parenchyma and medulla was not included on this exam. There is no midline shift, intra-axial mass effect, or nodular parenchymal or leptomeningeal enhancement. Ventricles, sulci, cisterns are within normal limits in size and configuration. There is no significant focal signal abnormality including hemosiderin deposition of the brain parenchyma. There is preservation of the major arterial intracranial flow voids at the skull base. There is mucous retention cyst of the inferior left maxillary sinus up to 1.9 cm AP. Mastoid air cells are overall aerated, somewhat limited pneumatization. Cerebellar tonsils are normal in location. There is preservation of marrow signal of the clivus. There is no significant abnormality of the pineal gland or pituitary gland. IMPRESSION There is no significant intracranial abnormality. Electronically signed by: Mike Chin MD (Sep 25, 2016 14:14:51)
[2016-09-25 15:00] VITALS: BP 109/65
--- NOTE | 2016-09-26 22:59 | DS ---
DATE OF DISCHARGE: 09/25/2016 DISCHARGE DIAGNOSES: 1. Acute left upper extremity tingling, numbness, unclear etiology, ? malingering or due to substance abuse 2. Methamphetamine use. BRIEF HOSPITAL COURSE: A 41-year-old male patient presented to the ER with complaints of sudden onset of left upper extremity tingling, numbness and pain. Denies any other symptoms such as chest pain, fever, chills, nausea, or vomiting and also he says paraesthesias confined only to left side of the body. He was admitted to the hospital and several imaging studies were done such as CT of the head, chest x-ray and MRI of the brain. All the tests were negative for any acute findings. Also, he was evaluated by Urology. Urology agreed with the above diagnosis. He denies any past significant history of substance abuse and hepatitis. As per the guards, the patient is faking symptoms. He says pain is more when staff members are around him and he denies any pain when staff members were not present. DISCHARGE EXAMINATION: GENERAL: Alert, oriented x 3. HEART: S1, S2 present. LUNGS: Anterior chest clear. ABDOMEN: Soft, nontender, no organomegaly. EXTREMITIES: No edema. NEUROLOGICAL: Strength in all 4 extremities intact and the patient says he did not have sensations in the left side of the body. No focal deficits seen. DISCHARGE DISPOSITION: Present. DISCHARGE CONDITION: Stable. PROGNOSIS: Guarded. FOLLOWUP: With primary care doctor for further workup. Total time spent for discharge is 35 minutes for patient education, counseling, and coordination of care. TASNEEM MCKINNEY MD DR: DAYSI/nathalie JOB#: [id number] / [id number] MONA
== END 2016-09-25 16:00 | DRG 883 ==
LOC: EEVIPCON 16:38 → ER 16:38 → 6 SOUTH 19:23
PROVIDERS: ADMIT Internal Medicine; ATTEND Internal Medicine
DX: F68.12 Factitious disorder imposed on self, with predominantly physical signs and symptoms (principal); R53.1 Weakness; R20.0 Anesthesia of skin; F15.90 Other stimulant use, unspecified, uncomplicated; T50.995A Adverse effect of other drugs, medicaments and biological substances, initial encounter; Z87.891 Personal history of nicotine dependence; Z82.49 Family history of ischemic heart disease and other diseases of the circulatory system
CPT/HCPCS: 36415; 70450; 70553; 71010; 80048; 83735; 85027; 93005; G0481; J2270; J2405; 99285-25; A9585